=== PATIENT | male | born 1980 | race Caucasian/White ===

== ENCOUNTER 2020-05-03 23:42 | Emergency (ER) | payer SELFPAY ==
[~2020-05-03] VITALS: Ht 190.5 cm; Wt 85.2 kg
--- NOTE | 2020-05-04 | NUR ---
ADRIANNA at bedside, Dr. Menon at bedside.
[2020-05-04] MEDS ORDERED: PROPOFOL 10 MG/ML, 20ML ONE ×2 (00:39→00:46)
[2020-05-04] MEDS ORDERED: PROPOFOL 10 MG/ML, 20ML IVPush ONE (01:00)
[2020-05-04] MEDS ORDERED: PLEASE ENTER ALLERGIES MC SCH (01:00)
--- NOTE | 2020-05-04 01:22 | NUR ---
SUCCESSFUL PROCEDURAL SEDATION AND INTACT FORIEN BODY WAS REMOVED. PROCEDURE TIME [id number], VSS. SEE PROCEDURAL SEDATION CHECKLIST FOR MORE INFORMATION AND VITAL SIGNS
--- NOTE | 2020-05-04 01:33 | NUR ---
SPOKE WITH PATIENT ON IMPORTANCE OF HAVING RIDE HOME AND NOT DRIVING, DRINKING ETOH, OR OPERATING HEAVY MACHINERY FOR 24 HOURS. PT AGREEABLE AND STATES HE WILL HAVE FRIEND PICK HIM UP
[2020-05-04 02:19] VITALS: BP 151/99
== END 2020-05-04 02:36 | disposition home or self-care (01) ==
LOC: ED 05-04 02:15
DX: T18.5XXA Foreign body in anus and rectum, initial encounter (principal); X58.XXXA Exposure to other specified factors, initial encounter; Y93.89 Activity, other specified; Y92.89 Other specified places as the place of occurrence of the external cause; Y99.8 Other external cause status
CPT/HCPCS: 99285